=== PATIENT | female | born 2000 | race Caucasian/White ===

== ENCOUNTER 2019-07-11 10:14 | Emergency (ER) | payer BC ==
--- NOTE | 2019-07-11 12:25 | EDM.PDOC ---
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 She has a [address] [facility] and a day later she started to have spotting then progressed to menstrual like bleeding. She c/o of felling eak and tired. She is taking ferrous sulfate 325 mg BID. - Related Data Allergies Allergy/AdvReac Type Severity Reaction Status Date / Time No Known Allergies Allergy Verified 07/11/19 11:36 Home Meds: Home Meds Insulin Detemir [Levemir Flextouch] 10 units SUBCUT BEDTIME 06/13/19 [History] TBV246/Iron Fumarate/FA/DSS [ 19 Tablet] 1 tab PO DAILY 06/13/19 [ History] Methylergonovine Maleate [Methergine] 0.2 mg PO Q6H #4 tablet 07/11/19 [Rx] Past Medical History - Past Health History Medical/Surgical History: Denies Medical/Surgical History HEENT History: Reports: Impaired Vision, Other (See Below) Other HEENT History: tubes in her ears before. Cardiovascular History: Reports: None Respiratory History: Reports: None Gastrointestinal History: Reports: None Genitourinary History: Reports: None A AND P TECHNICIAN History: Reports: Other A AND P TECHNICIAN History: Musculoskeletal History: Reports: None Psychiatric History: Reports: Anxiety, Depression Other Psychiatric History: state sthat she never tried to harm her self in the past and is not on any medication. Endocrine/Metabolic History: Reports: Diabetes, Gestational Hematologic History: Reports: Anemia, Idiopathic Thrombocytopenia Oncologic (Cancer) History: Reports: None - Infectious Disease History Infectious Disease History: Reports: Chicken Pox - Past Surgical History Head Surgeries/Procedures: Reports: None HEENT Surgical History: Reports: Adenoidectomy, Eye Surgery, Tonsillectomy Endocrine Surgical History: Reports: None Musculoskeletal Surgical History: Reports: Other (See Below) Other Musculoskeletal Surgeries/Procedures:: PT REPORTS KNEE SURGERY X2 Social & Family History - Family History Family Medical History: Noncontributory - Tobacco Use Smoking Status *Q: Never Smoker Second Hand Smoke Exposure: No - Caffeine Use Caffeine Use: Reports: Soda Other Caffeine Use: herba life Tea - Recreational Drug Use Recreational Drug Use: No ED ROS GENERAL - Review of Systems Review Of Systems: See Below Constitutional: Reports: Weakness HEENT: Reports: No Symptoms Respiratory: Reports: No Symptoms Cardiovascular: Reports: No Symptoms Endocrine: Reports: No Symptoms GI/Abdominal: Reports: No Symptoms : Reports: Other (vaginal bleeding) Skin: Reports: No Symptoms Neurological: Reports: No Symptoms ED EXAM, RENAL/ - Physical Exam Exam: See Below Exam Limited By: No Limitations General Appearance: Alert, No Apparent Distress Ears: Normal External Exam, Normal Canal, Hearing Grossly Normal Nose: Normal Inspection, Normal Mucosa Throat/Mouth: Normal Inspection, Normal Lips, Normal Teeth Head: Atraumatic, Normocephalic Neck: Normal Inspection, Supple, Non-Tender, Full Range of Motion Respiratory/Chest: No Respiratory Distress, Lungs Clear, Normal Breath Sounds Cardiovascular: Normal Peripheral Pulses, Regular Rate, Rhythm, No Edema GI/Abdominal: Normal Bowel Sounds, Soft, Non-Tender (Female) Exam: Vaginal Bleeding Back Exam: Normal Inspection Extremities: Normal Inspection Neurological: Alert, Oriented, CN II-XII Intact Course - Vital Signs Text/Narrative:: Labs reviewed and discussed with patient and vebalized full understanding Hb-10.2 Platelets-273K Case discussed with Dr aSlazar who want patient to take methergine 0.2 microgram Po Q 6H x 1 day Last Recorded V/S: Last Vital Signs Temp 36.8 C 07/11/19 10:15 Pulse 97 07/11/19 10:15 Resp 16 07/11/19 10:15 BP 122/65 07/11/19 10:15 Pulse Ox 100 07/11/19 10:15 - Orders/Labs/Meds Orders: Active Orders 24 hr Category Date Time Status INR,PT,PROTHROMBIN TIME [COAG] Stat Lab 07/11/19 11:20 Received PTT,PARTIAL THROMBOPLSTIN TIME [COAG] Stat Lab 07/11/19 11:20 Received Labs: Laboratory Tests 07/11/19 07/11/19 Range/Units 11:20 11:20 WBC 4.0 L (4.5-12.0) X10-3/uL RBC 4.10 (3.23-5.20) x10(6)uL Hgb 10.2 L (11.5-15.5) g/dL Hct 32.9 (30.0-51.3) % MCV 80.1 (80-96) fL MCH 24.8 L (27.7-33.6) pg MCHC 30.9 L (32.2-35.4) g/dL RDW 18.4 H (11.5-15.5) % Plt Count 273 (125-369) X10(3)uL MPV 7.6 (7.4-10.4) fL Neut % (Auto) 67.4 (46-82) % Lymph % (Auto) 21.8 (13-37) % [place] % (Auto) 7.7 (4-12) % Eos % (Auto) 3 (1.0-5.0) % Baso % (Auto) 0 (0-2) % Neut # (Auto) 2.7 (1.6-8.3) # Lymph # (Auto) 0.9 (0.6-5.0) # [place] # (Auto) 0.3 (0.0-1.3) # Eos # (Auto) 0.1 (0.0-0.8) # Baso # (Auto) 0.0 (0.0-0.2) # Sodium 144 (135-145) mmol/L Potassium 4.5 D (3.5-5.3) mmol/L Chloride 108 (100-110) mmol/L Carbon Dioxide 31 (21-32) mmol/L BUN 11 (7-18) mg/dL Creatinine 0.7 (0.55-1.02) mg/dL Est Cr Clr Drug Dosing TNP Estimated GFR (MDRD) > 60 (>60) BUN/Creatinine Ratio 15.7 (9-20) Glucose 109 (80-116) mg/dL Calcium 8.9 (8.6-10.2) mg/dL Departure - Departure Time of Disposition: 12:25 Disposition: Home, Self-Care 01 Condition: Good Clinical Impression: Abnormal uterine bleeding - Discharge Information Prescriptions: Methylergonovine Maleate [Methergine] 0.2 mg PO Q6H #4 tablet Instructions: Abnormal Uterine Bleeding, [id number] Referrals: Fuad Ventura MD [Primary Care Provider] - Forms: ED Department Discharge Additional Instructions: Please read discharge instructions on abnormal uterine bleeding take methergine 0.2 microgram every 6 hours for 1 day if your bleeding persist after taking all your methergine, follow up with DR Salazar your OB doctor at [facility]. You need to go there directly not through our ER. Sepsis Event Note - Evaluation Sepsis Screening Result: No Definite Risk - Focused Exam Vital Signs: Vital Signs Temp Pulse Resp BP Pulse Ox 07/11/19 10:15 36.8 C 97 16 122/65 100 Date Exam was Performed: 07/11/19 Time Exam was Performed: 12:28 - My Orders Last 24 Hours: My Active Orders 07/11/19 11:20 INR,PT,PROTHROMBIN TIME [COAG] Stat PTT,PARTIAL THROMBOPLSTIN TIME [COAG] Stat - Assessment/Plan Last 24 Hours: My Active Orders 07/11/19 11:20 INR,PT,PROTHROMBIN TIME [COAG] Stat PTT,PARTIAL THROMBOPLSTIN TIME [COAG] Stat
== END 2019-07-11 12:35 | disposition home or self-care (01) ==
LOC: FB.ED 10:14
DX: N93.8 Other specified abnormal uterine and vaginal bleeding (principal)
CPT/HCPCS: 36415; 80048; 85025; 85610; 85730; 99284